=== PATIENT | male | born 1960 | race Caucasian/White ===

== ENCOUNTER 2019-12-19 08:38 | Emergency (ER) | payer MEDICARE ==
[~2019-12-19] VITALS: Ht 188 cm; Wt 95.3 kg
[2019-12-19 08:45] VITALS: BP 135/99
--- NOTE | 2019-12-19 09:12 | NUR ---
Patient discharged to home in stable condition. Written and verbal after care instructions given. Patient verbalizes understanding of instruction.
== END 2019-12-19 09:12 | disposition home or self-care (01) ==
LOC: EDBD 08:49 → ER 08:49
DX: L02.11 Cutaneous abscess of neck (principal); M86.9 Osteomyelitis, unspecified